=== PATIENT | male | born 2005 | race Caucasian/White ===

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

== ENCOUNTER 2024-10-13 16:06 | Emergency (ER) | payer OTHER, BC, SELFPAY ==
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
[2024-10-13 16:08] VITALS: BP 120/80; PULSE 83; RESP 16; TEMP 36.4; O2SAT 100
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
[2024-10-13] MEDS: ACETAMINOPHEN 500 MG TABLET 1000 MG PO (18:36)
[2024-10-13] MEDS: IBUPROFEN 400 MG TABLET 800 MG PO (18:37)
== END 2024-10-13 18:38 | disposition home or self-care (01) ==
PROVIDERS: Emergency Provider Physician Assistant
DX: S69.91XA Unspecified injury of right wrist, hand and finger(s), initial encounter (principal); V43.62XA Car passenger injured in collision with other type car in traffic accident, initial encounter
CPT/HCPCS: 71111; 73110; 99284; A9270